=== PATIENT | male | born 1945 | race Caucasian/White ===

== ENCOUNTER 2016-12-25 16:19 | Emergency (ER) | payer MEDICARE, OTHER ==
[~2016-12-25 16:19] MED LIST: ALBUTEROL0.63 MG/3 NEB; ASPIRIN325 MG PO; DUONEB 2.5-0.5MG3 ML NEB; LEVEMIR100 UNIT/1 SQ; LOPID600 MG PO; NORVASC5 MG PO; NOVOLOG100 UNIT/2 SQ; PLAVIX75 MG PO; PRAVACHOL40 MG PO; PREDNISONE10 MG PO; TENORMIN50 MG PO; ZANTAC300 MG PO; ZYRTEC10 MG PO
== END 2016-12-25 17:43 | disposition other institution (70) ==
LOC: ER 16:19
DX: I13.0 Hypertensive heart and chronic kidney disease with heart failure and stage 1 through stage 4 chronic kidney disease, or unspecified chronic kidney disease (principal); I50.9 Heart failure, unspecified; N18.9 Chronic kidney disease, unspecified; E11.22 Type 2 diabetes mellitus with diabetic chronic kidney disease; E11.65 Type 2 diabetes mellitus with hyperglycemia; J44.0 Chronic obstructive pulmonary disease with (acute) lower respiratory infection; J18.9 Pneumonia, unspecified organism; R53.1 Weakness; F17.210 Nicotine dependence, cigarettes, uncomplicated; Z99.81 Dependence on supplemental oxygen

== ENCOUNTER 2016-12-25 16:19 | Inpatient (IN) | payer MEDICARE, OTHER ==
[~2016-12-25] VITALS: Ht 170.2 cm; Wt 75.0 kg
[2016-12-25 17:12] LABS: ALBUMIN 3.6 gm/dL (3.4-5.0); BILIRUBIN,TOTAL 0.24 mg/dL (0.0-1.0); CALCIUM 8.9 mg/dL (8.7-10.7); CREATININE 2.1 mg/dL (0.6-1.3); POTASSIUM 4.7 mmol/L (3.5-5.1); TOTAL PROTEIN 7.6 gm/dL (6.4-8.2)
[2016-12-25 17:18] LABS: BASO % 0.1 % (0.2-1.2); EOS % 0.4 % (0.8-7.0); GRAN # 7.4 10_X3_uL (1.8-5.4); HEMATOCRIT 32.5 % (40-51); HEMOGLOBIN 11.1 g/dL (13.7-17.5); LYMPH # 1.2 10_X3_uL (1.3-3.6); LYMPH % 12.5 % (21.8-53.1); MEAN CORPUSCULAR HEMOGLOBIN 31.3 pg (27.0-33.0); MEAN CORPUSCULAR HGB CONC 34.2 g/dL (32.0-36.0); MEAN CORPUSCULAR VOLUME 91.5 fL (79-92); MEAN PLATELET VOLUME 11.8 fl (7.5-11.5); MONO # 1.3 10_X3_uL (0.3-0.8); PLATELET COUNT 223 x10_3/uL (163-337); RED BLOOD COUNT 3.55 x10_6/uL (4.6-6.1); RED CELL DISTRIBUTION WIDTH 13.4 % (11.6-14.4); WHITE BLOOD COUNT 9.9 x10_3/uL (4.2-9.1)
[2016-12-26 03:39] LABS: CALCIUM 8.5 mg/dL (8.7-10.7); CREATININE 2.5 mg/dL (0.6-1.3); POTASSIUM 4.5 mmol/L (3.5-5.1)
[2016-12-26 03:46] LABS: HEMATOCRIT 28.9 % (40-51); HEMOGLOBIN 9.6 g/dL (13.7-17.5); MEAN CORPUSCULAR HEMOGLOBIN 30.3 pg (27.0-33.0); MEAN CORPUSCULAR HGB CONC 33.2 g/dL (32.0-36.0); MEAN CORPUSCULAR VOLUME 91.2 fL (79-92); MEAN PLATELET VOLUME 12.3 fl (7.5-11.5); RED BLOOD COUNT 3.17 x10_6/uL (4.6-6.1); RED CELL DISTRIBUTION WIDTH 13.3 % (11.6-14.4); WHITE BLOOD COUNT 6.4 x10_3/uL (4.2-9.1)
[2016-12-26 07:19] LABS: URINE BILIRUBIN NEGATIVE (NEGATIVE); URINE BLOOD TRACE (NEGATIVE); URINE GLUCOSE (UA) 250 mg/dL (NORMAL); URINE KETONE NEGATIVE (NEGATIVE); URINE LEUKOCYTE ESTERASE NEGATIVE (NEGATIVE); URINE NITRATE NEGATIVE (NEGATIVE); URINE PROTEIN 2+ (NEGATIVE); UROBILINOGEN NORMAL mg/dL (<1.0)
[2016-12-26 07:31] LABS: URINE RBC 0-5 /[HPF] (0-2); URINE SQUAMOUS EPITHELIAL CELL 0-10 /[HPF] (NONE SEEN)
[2016-12-26 12:10] LABS: ARTERIAL BLD GAS O2 SATURATION 87.7 % (94-98); ARTERIAL BLOOD GAS BASE EXCESS -2.6 mmol/L (-2.0-3.0); ARTERIAL BLOOD GAS HCO3 21.5 mmol/L (22-26); ARTERIAL BLOOD GAS PCO2 36.5 mmHg (35-48); ARTERIAL BLOOD GAS pH 7.39 (7.35-7.45)
== END 2016-12-26 13:07 | disposition short-term general hospital (02) | DRG 189 ==
LOC: ER 16:19 → MS 17:43
PROVIDERS: General Practice; ADMIT Family Medicine
DX: J96.00 Acute respiratory failure, unspecified whether with hypoxia or hypercapnia (principal); J18.9 Pneumonia, unspecified organism; J44.0 Chronic obstructive pulmonary disease with (acute) lower respiratory infection; J44.1 Chronic obstructive pulmonary disease with (acute) exacerbation; I13.0 Hypertensive heart and chronic kidney disease with heart failure and stage 1 through stage 4 chronic kidney disease, or unspecified chronic kidney disease; E11.22 Type 2 diabetes mellitus with diabetic chronic kidney disease; I50.9 Heart failure, unspecified; N18.3 Chronic kidney disease, stage 3 (moderate); R60.9 Edema, unspecified; R30.0 Dysuria; F17.210 Nicotine dependence, cigarettes, uncomplicated; Z80.9 Family history of malignant neoplasm, unspecified; Z79.82 Long term (current) use of aspirin; Z79.899 Other long term (current) drug therapy; Z79.84 Long term (current) use of oral hypoglycemic drugs; Z99.81 Dependence on supplemental oxygen
CPT/HCPCS: 36415; 36600; 71010; 80048; 80053; 80061; 81001; 82803; 82962; 83036; 83605; 83880; 85025; 86738; 87040; 87070; 87205; 87449; 93005; 93041; 94640; 94664; 99070; J2920; J2930; J7050